=== PATIENT | male | born 1995 | race Caucasian/White ===

== ENCOUNTER 2017-08-20 17:55 | Emergency (ER) | payer MEDICAID | END 2017-08-20 20:28 | disposition left against medical advice (07) | LOC: D.ER 17:55 | DX: S71.142A Puncture wound with foreign body, left thigh, initial encounter (principal); X58.XXXA Exposure to other specified factors, initial encounter; Y93.89 Activity, other specified; Y92.89 Other specified places as the place of occurrence of the external cause ==